=== PATIENT | female | born 1990 | race Hispanic/Latino ===

== ENCOUNTER 2016-05-14 08:44 | Emergency (ER) | payer OTHER ==
[~2016-05-14] VITALS: Ht 160 cm; Wt 58.2 kg
[~2016-05-14 08:44] MED LIST: DOCU-41 PO; HYDR25SU31 RC; HYDR30CR76 RC; IBUP-1827 PO
[2016-05-14 08:47] VITALS: BP 100/65; PULSE 69; RESP 16; O2SAT 99
--- NOTE | 2016-05-14 09:06 | ED.REPORT ---
HPI- Female Date of Service May 14, 2016 ED Provider: Tiffany Montes MD 25 year old female with no PMHx presents to the ED with intermittent 9/10 vaginal pain since yesterday. The pain started while walking at the grocery store yesterday and is exacerbated with walking since. She also reports pain with wiping but denies dysuria. Pt denies vaginal discharge, rash, and swelling. She is , but her is away on vacation so she has not had sex in 2 months. Pt is on Implanon with LNMP ending 5 days ago. Pt has no history of STD. Nursing Notes Stated Complaint: VAGINAL PAIN Chief Complaint: Female Abdominal Pain Nursing Notes Reviewed: Yes Allergies: Coded Allergies: No Known Allergies (Unverified Allergy, Unknown, 05/14/16) Scheduled Docusate Sodium (Colace) 100 Mg Capsule 100 MG PO BID Docusate Sodium (Colace) 100 Mg Capsule 100 MG PO BID Hydrocortisone (Anusol-Hc) 30 Gm Cream..g. 30 GM RC BID Hydrocortisone Acetate (Anusol-Hc) 25 Mg Supp.rect 25 MG RC BID Scheduled PRN Ibuprofen (Ibuprofen) 600 Mg Tablet 600 MG PO Q6H PRN PRN For Mild Pain Ibuprofen (Ibuprofen) 600 Mg Tablet 600 MG PO QID PRN PRN For Pain General Time Seen by MD: 09:05 Chief Complaint Pelvic pain Hx Obtained From: Patient Arrived By: Walk-in Sudden in Onset?: Yes Onset Occurred: Yesterday Symptom Duration: Since onset Quality: Painful Severity: Current: Moderate Associated with: Denies: Fever, UTI symptoms..., Vomiting Similar Sx Previous: Yes (with previous ) Past Medical History Past Medical History Healthy Past Surgical History denies Smoking History Never Smoker Social History Other Social History: Good social support, , Lives with children, Local resident Ambulatory Status Independent Review of Systems Basic Review of Systems Eyes: Vision NL, No discharge Respiratory: No shortness of breath, No cough, No wheeze Cardiovascular: No chest pain, No dyspnea on exertion, No orthopnea, No parox noct dyspnea, No palpitations Psychiatric: Normal thought content Constitutional: Denies: Chills, Fever GI: Denies: Abdominal pain, Diarrhea, Nausea, Vomiting Female: Reports: Pelvic pain, Denies: Dysuria, , Vaginal bleeding - abnl, Vaginal discharge Musculoskeletal: Denies: Back pain Skin: Denies Diaphoresis, Denies Rash, Denies Swelling Neurologic: Denies: Change LOC, Headache Complete sys rev & neg: except as marked. Physical Exam Initial Vital Signs Vital Signs (First) Date Time Temp Pulse Resp B/P Pulse Ox O2 Delivery O2 Flow Rate FiO2 05/14/16 08:47 36.9 69 16 100/65 99 Room Air Initial VS: Reviewed General/Constitutional: Well-developed, Well-nourished Head / Eyes: Atraumatic, Normocephalic, PERRL ENT: Mucous membranes moist, Conjunctiva normal, No scleral icterus Neck: Full range of motion Respiratory: Breath sounds normal, Clear to auscultation, No respiratory distress Cardiovascular: Regular rate & rhythm, Heart sounds normal, Intact distal pulses Abdomen / GI: Soft, Non-tender, No guarding, No rebound, No distention Extremities: Vascular intact, Neuro intact Skin: Warm, Dry, No cyanosis Neurologic: Alert, Oriented, Nonfocal Psychiatric: Mood/affect normal, Behavior normal, Normal thought content Female Genitourinary: No discharge No vaginal rash, discharge, odor or swelling. Bartholin's duct not inflamed. TTP seems to be on mid portions of labia majora. No folliculitis. Uterus normal. No CMT. 2x3 cm tender area in the R adnexa. Lymphatic: No inguinal adenopathy Interpretation & Diagnostics Interpretation & Diagnostics: u/s: no significant findings. specifically no masses and normal ovaries with good blood flow bilaterally Radiologist Impression: IMPRESSION: No visualized adnexal mass. Dictated by: Ivania Squires M.D. on 05/14/2016 at 11:05 Lab Results Interpretation Test 05/14/16 09:52 Urine Color Straw (YELLOW) Urine Appearance Hazy (CLEAR,HAZY) Urine pH 6.0 (5.0-8.0) Urine Specific [place] 1.025 (1.003-1.035) Urine Protein Negativemg/dL (NEG,TRACE) Urine Glucose (UA) Negativemg/dL (NEGATIVE) Urine Ketones Negativemg/dL (NEGATIVE) Urine Occult Blood Trace (NEGATIVE) Urine Nitrite Negative (NEGATIVE) Urine Bilirubin Negative (NEGATIVE) Urine Urobilinogen Normalmg/dL (NORMAL) Urine Leukocyte Esterase Negative (NEGATIVE) Urine RBC 0-2/hpf (0-2) Urine WBC 0-5/hpf (0-5) Urine Epithelial Cells Occasional/hpf (NONE-MOD) Urine Crystals None seen (NONE SEEN) Urine Bacteria Few/hpf (NONE-FEW) Urine Hyaline Casts None/lpf (NONE) Urine Granular Casts None seen (NONE SEEN) Urine Waxy Casts None seen (NONE SEEN) Urine Red Blood Cell Casts None seen (NONE SEEN) Urine White Blood Cell Casts None seen (NONE SEEN) Urine Mucus Present (None Seen) Urine Trichomonas None seen (NONE SEEN) Urine Yeast None (NONE SEEN) Urinalysis Comment None Urine Culture Reflexed Not indicated Lab Results Interpretation: Upreg negative Re-Eval/Medical Decision Re-Evaluation/Progress : Time of Eval: 10:52 Re-Evaluation/Progress Note: Pt's pain has improved. Updated pt of labs and imaging results. Discussed plan for discharge and follow up. All questions addressed. Counseled Regarding: Diagnosis, Lab results, Need for follow-up, When/why to return to ED Discharge & Departure Impression: Primary Impression: Pelvic pain Ruled Out: UTI (urinary tract infection), Ovarian cyst, Herpes, PID (pelvic inflammatory disease), Bartholin's duct cyst Disposition: Home Discharge Condition All VS Reviewed: Yes Condition: Improved Additional Instructions: Thank you for letting us help today. I'm happy to tell you that there were no significant findings visualized on your ultrasound. Your ovary and pelvic organs all look normal. There is no evidence of infection or other acute findings either. You can use 600mg Ibuprofen every 6 hours for pain as needed. A prescription for this was electronically sent to [facility] for you Follow up with your doctor if pain persist. Return to the ER for fever, vaginal discharge, and any concerning symptoms. Good luck! Referrals: Dania Kumar MD Scribe Attestation Portions of this note were transcribed by Hoa Armenta. I, (Dr. Montes) personally performed the history, physical exam and medical decision-making; I reviewed and confirmed the accuracy of the information in the transcribed note. Signed by: Hoa Armenta. 05/14/2016, 1108 copies to: Dania Kumar MD, Shawna L MD May 14, 2016 09:06 Hoa Armenta May 14, 2016 09:38
[2016-05-14 10:33] LABS: APPEARANCE,URINE HAZY (CLEAR,HAZY); COLOR,URINE STRAW (YELLOW); OCCULT BLOOD,URINE TRACE (NEGATIVE); UROBILINOGEN,URINE NORMAL (NORMAL)
[2016-05-14] MEDS ORDERED: IBUP-1827 PO (11:01)
--- NOTE | 2016-05-14 11:07 | DRSVH ---
PROCEDURE: US PELVIC SONOGRAM + TRANSVAGINAL SONOGRAM INDICATIONS: Right adnexal mass, presents with pain TECHNIQUE: Real-time scanning was performed of the pelvic organs, with image documentation. Additional endovagi nal scanning was necessary due to incomplete visualization of the adnexal and endometrial structures by transabdominal scanning. COMPARISON: [facility], US, US OB>14+OB TRANSVAG, 02/06/2015, 22:58. FINDINGS: (orthogonal measurements) Uterus size: 5.96 cm, 3.86 cm, 4.57 cm Endometrium thickness: 7.30 mm Right ovary size: 2.68 cm, 2.12 cm, 1.29 cm Left ovary size: 2.34 cm, 1.63 cm, 1.69 cm Transabdominal scanning: Limited scanning through the kidneys shows no hydronephrosis. No pathologi c free abdominal or pelvic fluid. Endovaginal scanning: Uterus: Uterus is normal in size and appearance. Endometrium is within normal physiologic limits. Ovaries: Within normal physiologic limits. IMPRESSION: No visualized adnexal mass. Dictated by: Ivania Squires M.D. on 05/14/2016 at 11:05 Approved by: Ivania Squires M.D. on 05/14/2016 at 11:05
== END 2016-05-14 11:20 | disposition home or self-care (01) ==
LOC: SED 08:44
DX: R10.2 Pelvic and perineal pain (principal)

== ENCOUNTER 2016-07-31 07:16 | Emergency (ER) | payer OTHER ==
[~2016-07-31] VITALS: Ht 137.2 cm; Wt 53.6 kg
[2016-07-31 07:18] VITALS: BP 98/61; PULSE 76; RESP 10; O2SAT 99
--- NOTE | 2016-07-31 07:34 | ED.REPORT ---
HPI-Rash / Abscess Date of Service Jul 31, 2016 ED Provider: Ceasar Salazar MD Pt is a 26 y.o. healthy female with no reported allergies who presents to the ED c/o red areas associated with itching onset approximately 1 week ago.She states that her sx typically begin at night and resolve in the morning, occasionally having intermittent itching throughout the day. She states that the redness appears as streaking lines and covers her entire body. 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 She also states that she recently changed her laundry detergent and fabric softener around the time of onset. She denies nausea, vomiting, diarrhea, SOB, oral pain and swelling. Nursing Notes Stated Complaint: BODY RASH Chief Complaint: Skin Rash/Abscess Nursing Notes Reviewed: Yes Allergies: Coded Allergies: No Known Allergies (Unverified Allergy, Unknown, 05/14/16) Scheduled Docusate Sodium (Colace) 100 Mg Capsule 100 MG PO BID Docusate Sodium (Colace) 100 Mg Capsule 100 MG PO BID Hydrocortisone (Anusol-Hc) 30 Gm Cream..g. 30 GM RC BID Hydrocortisone Acetate (Anusol-Hc) 25 Mg Supp.rect 25 MG RC BID Scheduled PRN Ibuprofen (Ibuprofen) 600 Mg Tablet 600 MG PO Q6H PRN PRN For Mild Pain Ibuprofen (Ibuprofen) 600 Mg Tablet 600 MG PO QID PRN PRN For Pain General Time Seen by MD: 07:32 Chief Complaint Red area Hx Obtained From: Patient Arrived By: Walk-in Onset Occurred: 1 week ago Symptom Duration: Intermittent Location: : Generalized Quality: Itching Past Medical History Past Medical History Healthy Denies: Asthma Past Surgical History denies Smoking History Never Smoker Social History Other Social History: Good social support, , Lives with children, Local resident Ambulatory Status Independent Review of Systems Ears / Nose / Throat: Denies: Mouth pain, Throat swelling, Tongue pain, Tongue swelling Respiratory: Denies: Shortness of breath GI: Denies: Diarrhea, Nausea, Vomiting Skin: Reports Itching, Reports Rash (Red, streaking areas) Complete sys rev & neg: except as marked. Physical Exam Initial Vital Signs Vital Signs (First) Date Time Temp Pulse Resp B/P Pulse Ox O2 Delivery O2 Flow Rate FiO2 07/31/16 07:18 36.4 76 10 98/61 99 Room Air Initial VS: Reviewed Head / Eyes: Atraumatic, Normocephalic Abdomen / GI: No distention Extremities: Vascular intact, Neuro intact Neurologic: Alert, Oriented, Nonfocal Psychiatric: Mood/affect normal, Behavior normal, Normal thought content General/Constitutional: Awake, Alert Skin: Warm, Dry, Intact ENT: Atraumatic, Airway patent, Mucous membranes moist, Pharynx NL, No pooling of secretions, No facial swelling Respiratory / Chest: Atraumatic, Breath sounds NL, Breath sounds = bilat, No respiratory distress Cardiovascular: Heart rate NL, Regular rhythm, Heart sounds NL, Peripheral circulation NL Re-Eval/Medical Decision Source of Hx: Old records Re-Evaluation/Progress : Time of Eval: 07:49 Re-Evaluation/Progress Note: Physical exam performed. Discussed plan for discharge, and need for follow-up. Pt understands and agrees with plan. Counseled Regarding: Diagnosis Discharge & Departure Impression: Primary Impression: Contact allergic reaction Disposition: Home Discharge Condition All VS Reviewed: Yes Condition: No Change Patient Instructions: Contact Dermatitis (ED) Additional Instructions: I think that your symptoms are almost certainly from a contact allergy. This means that a chemical or some other thing is causing the rash on your skin. The thing that seems most likely is the detergent that you used to wash her clothes. I recommended changing back to the detergent you are using previously. Follow-up in a week at the clinic if your symptoms are not much better. For now, use hydroxyzine as needed for itch or rash. Translation by Marga. Siento que tru sintomas [place] de seguro emanaron de kelly alergia por contacto. [place] significa que algun quimico o sustancia causo la erupcion en ivory piel. Lo que parece mas probable es el detergente que mercado se betty usado para hany ivory ropa. Les recomiendo que vuelvan a utilizar el detergente que usaban antes de tiara. Si los sintomas no se le quitan, pasen al consultorio en kelly semana. Por ahora use el hydroxizine para la comezon y la erupcion cutanea cuando le sea necesario. Referrals: Joan Dias (PCP) 1 Week Carlyn Attestation Portions of this note were transcribed by Dionisio Vazquez. I, Dr. Salazar personally performed the history, physical exam and medical decision-making; I reviewed and confirmed the accuracy of the information in the transcribed note. Signed by: Carlyn Arias, 07/31/16 and 0000. copies to: Joan Dias Kirk H MD Jul 31, 2016 07:34 DIONISIO VAZQUEZ Jul 31, 2016 07:43
[2016-07-31] MEDS ORDERED: hydrOXYzine Pamoate 25 mg Capsule PO ONE (07:55)
[2016-07-31] MEDS ORDERED: HYDR-656 PO (08:24)
== END 2016-07-31 08:30 | disposition home or self-care (01) ==
LOC: SED 07:30
DX: T78.40XA Allergy, unspecified, initial encounter (principal); X58.XXXA Exposure to other specified factors, initial encounter; Y93.9 Activity, unspecified; Y99.9 Unspecified external cause status; Y92.9 Unspecified place or not applicable
CPT/HCPCS: 99283; Q0177